=== PATIENT | male | born 2005 | race Caucasian/White ===

== ENCOUNTER 2023-04-02 01:12 | Emergency (ER) | payer OTHER, SELFPAY ==
[2023-04-02 01:15] VITALS: BP 155/77; PULSE 87; RESP 18; O2SAT 98; BMI 27.0
--- NOTE | 2023-04-02 01:15 | ED.GENADULT ---
HPI - General Adult General Chief complaint: Upper Respiratory Symptoms Stated complaint: sore throat, congestion, headache, fever Time Seen by Provider: 04/02/23 01:15 History of Present Illness HPI narrative: 17-year-old male fully immunized nonsmoker presents with his significant other and a chief complaint of 2 weeks of upper respiratory symptoms. He is had nasal congestion some sore throat and initially a dry and hacking cough which is now developed the production of some yellowish greenish sputum. He denies any significant shortness of breath. He is had no nausea, vomiting or diarrhea. He is around multiple other people with relatively similar symptoms. He is had multiple negative COVID and strep tests. He states a deep breath makes him more likely to cough. Related Data Previous Rx's Medication Instructions Recorded benzonatate 200 mg capsule 200 mg PO BID PRN cough #20 caps 04/02/23 doxycycline hyclate 100 mg tablet 100 mg PO BID #20 tabs 04/02/23 Allergies Allergy/AdvReac Type Severity Reaction Status Date / Time No Known Drug Allergies Allergy Verified 04/02/23 01:46 Review of Systems Review of Systems Narrative: GENERAL: See HPI HEENT: See HPI RESPIRATORY: See HPI CARDIOVASCULAR: Denies chest pain, palpitations, orthopnea, edema, GASTROINTESTINAL: Denies nausea, vomiting, abdominal pain, diarrhea, constipation, melena. : Denies dysuria, frequency, incontinence, hematuria, urinary retention. MUSCULOSKELETAL: denies weakness, joint pain, or bony pain SKIN: Denies rash, skin lesions, or other NEUROLOGIC: Denies weakness, headache, numbness, change in speech, confusion, seizures, incoordination. PSYCHIATRIC: No concerning psychosocial issues. 12 point review of systems is negative except for those stated above Exam Narrative Exam Narrative: GENERAL: 17 year old patient appears stated age. Well-developed patient, in mild distress. HEAD: Atraumatic. Normocephalic. EYES: Pupils equal round and reactive. Extraocular motions intact. No scleral icterus. No injection or drainage. ENT: Moist mucous membranes, clear drainage bilateral nares Nose without bleeding, purulent drainage. Throat without erythema, tonsillar hypertrophy or exudate. Airway patent. NECK: Trachea midline. Non tender CARDIOVASCULAR: Regular rate and rhythm without murmurs, gallops, or rubs. RESPIRATORY: Mild end expiratory wheeze, deep breath illicits cough, no obvious rales or rhonchi GASTROINTESTINAL: Abdomen soft, non-tender, nondistended. EXTREMITIES: No edema or joint tenderness. BACK: Nontender without deformity or crepitance. No flank tenderness. NEURO: AOx3. SKIN: No rash or erythema of visible areas Initial Vital Signs Initial Vital Signs: Vital Signs Pulse Rate 87 04/02/23 01:15 Respiratory Rate 18 04/02/23 01:15 Blood Pressure 155/77 H 04/02/23 01:15 Pulse Oximetry 98 04/02/23 01:15 Oxygen Delivery Method Room Air 04/02/23 01:15 Course Orders Ordered: ED Orders 04/02/23 01:20 Respiratory Panel (Film Array) Stat Discontinued Medications Albuterol (Albuterol Hfa Prepack) 1 box MISC SEEINSTR ONE Stop: 04/02/23 01:21 Last Admin: 04/02/23 01:28 Dose: 1 box Albuterol/Ipratropium (Albuterol/Ipratropium 3 Ml Ampul) 3 ml INH NOW ONE Stop: 04/02/23 01:21 Last Admin: 04/02/23 01:28 Dose: 3 ml Doxycycline Hyclate (Doxycycline Hyclate 100 Mg Tablet) 100 mg PO NOW ONE Stop: 04/02/23 01:22 Last Admin: 04/02/23 01:46 Dose: 100 mg Consultations Consultation #1: Respiratory to Evaluate and Treat. Gives DuoNeb with improvement and Albuterol MDA with spacer for home Vital Signs Vital signs: Vital Signs - 8 hr 04/02/23 01:15 04/02/23 01:48 Pulse Rate 87 90 Respiratory Rate 18 18 Blood Pressure 155/77 H 149/91 H Pulse Oximetry 98 97 Oxygen Delivery Method Room Air Room Air Medical Decision Making [facility] Narrative Medical decision making narrative: [17] year old patient presents with upper respiratory symptoms for 2 weeks, now productive sputum Multiple etiologies for patient's symptoms considered including, but not limited to: [Flu versus COVID versus atypical pneumonia versus other] Prior Charts reviewed in our EMR Primary Historian: patient Labs reviewed and interpreted by myself: Respiratory panel demonstrates Patient with reassuring history and physical exam, various upper respiratory symptoms but now a more harsh cough with the production of off colored sputum. He has been ruled out for COVID on multiple occurrences. There is no signs of sepsis or respiratory distress, no increased work of breathing and no hypoxemia. No significant abnormal lung findings, chest x-ray not indicated. Full respiratory panel pending at time of discharge. Given duration of symptoms and worsening production of sputum he is appropriate to treat for atypical pneumonia. Patient given albuterol and DuoNeb here with some improvement in bronchospastic cough, 1st dose of doxycycline and prescription sent to his pharmacy of choice Findings and discharge diagnosis discussed with patient/family followed by verbalization of understanding Return precautions discussed with patient/family whom verbalize understanding of diagnosis and plan Discharge Plan Departure Patient Disposition: Home Clinical Impression: Atypical pneumonia Instructions: DI for Atypical Pneumonia Activity Restrictions/Additional Instructions: *You have been diagnosed with [atypical pneumonia] *What to do: *Please continue to take your regular medications as directed. [ x] New medication prescriptions sent to your pharmacy: [ [facility]] [ ] New medication written as a paper prescription [ ] No new medications given *Please follow up with your primary care provider in 2-3 days, call for an appointment. Let them know you were seen in the Emergency Department and that we ask that you be seen in follow up. We will electronically transmit a record of today's note if your PCP is in our system *Return to Emergency Department if you should have any new, worsening or concerning symptoms, such as [fever greater than 101 F, shaking chills, worsening pain, persistent vomiting or other bothersome symptoms] Prescriptions: New benzonatate 200 mg capsule 200 mg PO BID PRN (Reason: cough) Qty: 20 0RF doxycycline hyclate 100 mg tablet 100 mg PO BID Qty: 20 0RF Referrals: ProviderOmayra [Primary Care Provider] - Stand Alone Forms: Patient Portal/API
[2023-04-02] MEDS: ALBUTEROL HFA PREPACK 1 BOX MISC (01:28)
[2023-04-02] MEDS: ALBUTEROL/IPRATROPIUM 3 ML AMPUL INH (01:28)
[2023-04-02] MEDS: DOXYCYCLINE HYCLATE 100 MG TABLET PO (01:46)
[2023-04-02 01:48] VITALS: BP 149/91; PULSE 90; RESP 18; O2SAT 97
[2023-04-02 02:18] LABS: Adenovirus Not Detected (Not Detect); B. parapertussis Not Detected (Not Detecte); Bordetella pertussis Not Detected (Not Detecte); Chlamydophila pneumoniae Not Detected (Not Detect); Coronavirus 229E Not Detected (Not Detect); Coronavirus HKU1 Not Detected (Not Detect); Coronavirus NL 63 Not Detected (Not Detect); Coronavirus OC43 Not Detected (Not Detect); Human Metapneumovirus Not Detected (Not Detect); Human Rhinovirus/Enterovirus Detected (Not Detect); Influenza A Not Detected (Not Detect); Influenza B Not Detected (Not Detect); Mycoplasma pneumoniae Not Detected (Not Detect); Parainfluenza Virus 1 Not Detected (Not Detect); Parainfluenza Virus 2 Not Detected (Not Detect); Parainfluenza Virus 3 Not Detected (Not Detect); Parainfluenza Virus 4 Not Detected (Not Detect); Respiratory Syncytial Virus Not Detected (Not Detect); SARS- CoV-2 Not Detected (Not Detecte)
== END 2023-04-02 01:56 | disposition home or self-care (01) ==
PROVIDERS: Emergency Provider Emergency Medicine
DX: J18.9 Pneumonia, unspecified organism (principal)
CPT/HCPCS: 87633; 94640; 99283

== ENCOUNTER 2024-01-11 23:28 | Emergency (ER) | payer OTHER, SELFPAY ==
[2024-01-11 23:32] VITALS: BP 134/64; PULSE 122; RESP 20; TEMP 37.2; O2SAT 99; BMI 26.4
[2024-01-12 00:30] VITALS: O2SAT 91
[2024-01-12 00:31] VITALS: BP 123/56; PULSE 106; O2SAT 100
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
[2024-01-12] MEDS: KETOROLAC 30 MG/ML VIAL IM (01:20)
[2024-01-12 01:54] VITALS: BP 122/64; PULSE 68; RESP 16; TEMP 36.6; O2SAT 100
== END 2024-01-12 01:55 | disposition home or self-care (01) ==
PROVIDERS: Emergency Provider Emergency Medicine
DX: L55.9 Sunburn, unspecified (principal); R11.2 Nausea with vomiting, unspecified; R51.9 Headache, unspecified
CPT/HCPCS: 96372; 99283; J1885